=== PATIENT | female | born 1990 | race Caucasian/White ===

== ENCOUNTER → 2018-03-13 | Outpatient (CLI) | payer OTHER ==
[~2018-03-13] MED LIST: CONRAY-43 43% 50ML VIAL (Q9960) As Ordered ONE; PROHANCE 279.3MG/ML 5ML VIAL (A9576) As Ordered ONE
--- NOTE | 2018-03-13 14:42 | REP ---
MR arthrogram left hip: History: Increased left hip pain left hip impingement, suspected labral tear. Comparison studies: No comparison study. Technique: Precontrast imaging includes coronal T1 and T2-weighted scans of both hips. Postcontrast small field of view high resolution axial, coronal and sagittal images are acquired in T1 and T2-weighted scans with fat saturation. MR arthrographic findings: Pre injection imaging shows cortical and medullary bone signal intensity is normal in the proximal femurs bilaterally. There is no evidence of avascular necrosis. No significant hip joint effusion is seen. No juxtaarticular cyst or bursal fluid collection is appreciated. Uterus is tipped somewhat to the left and retroverted but otherwise unremarkable. No ovarian or other intrapelvic abnormality. Post injection imaging shows good filling and enhancement of the left hip articulation. Ligamentum teres is intact. No labral tear is seen. Head neck junction morphology is normal. There is some injection artifact anteriorly in the extra-articular soft tissues. No loose body is seen. Impression: Normal MR arthrography left hip. Electronically Signed by Emery Hastings MD 03/13/2018 08:38 P
--- NOTE | 2018-03-13 20:32 | REP ---
Left hip arthrogram The procedure was performed under the direction supervision of Dr. Hastings. The benefits and risks including but not limited to pain, infection, bleeding and anaphylaxis were explained to the patient and informed consent was obtained. The left femoral neck was localized using fluoroscopic guidance. Skin was prepped and draped in a sterile fashion. 1% lidocaine was used as a local anesthetic. Using fluoroscopic guidance a 22 gauge spinal needle was inserted and advanced to the femoral neck. 0.5 ml of Conray 43 was injected to verify placement. 11 ml of a solution containing 20 ml of sterile saline and 0.15 ml of ProHance was injected into the joint. The needle was removed and the patient was taken to MRI for postprocedural imaging. The patient tolerated the procedure well and there were no immediate complications. Less than 6 seconds of fluoro time was utilized for this procedure. Reviewed by EVAN Corrigan 03/13/2018 04:33 P Electronically Signed by Emery Hastings MD 03/13/2018 08:23 P
== END ==
LOC: M RADPRO 06:32
PROVIDERS: ATTEND Physician Assistant
DX: M25.852 Other specified joint disorders, left hip (principal)
CPT/HCPCS: 27093; 73723; 77002; A9576; Q9960